=== PATIENT | male | born 1970 | race African-American/Black ===

== ENCOUNTER 2021-01-20 13:53 | Inpatient (IN) | payer OTHER ==
[2021-01-20 15:45] LABS: #Eosinphils 0.4 10x3/uL (0.0-0.5); #Monocytes 0.9 10x3/uL (0.0-1.1); #Neutrophils 6.9 10x3/uL (1.5-8.4); %Basophils 0.3 % (0.0-2.0); %Eosinophils 3.5 % (0.0-6.0); %Lymphocytes 18.7 % (18.0-47.0); %Neutrophils 67.8 % (40.0-75.0); Hemoglobin 6.4 g/dL (13.5-17.5); Mean Corpuscular HGB CONC 30.6 g/dL (32.0-36.0); Mean Corpuscular Hemoglobin 22.7 pg (27.0-33.0); Mean Corpuscular Volume 74.1 fl (81.2-95.1); Mean Platelet Volume 9.2 fl (7.4-10.4); PTT 27.7 sec (22.0-33.0); Platelet Count 464 10x3/uL (150-450); Prothrombin Time 11.4 sec (9.5-12.1); RBC Distribution Width 16.4 % (11.5-14.5); Red Blood Cell (RBC) Count 2.82 10x6/uL (4.32-5.72); White Blood Cell (WBC) Count 10.2 10x3/uL (3.5-10.5)
[2021-01-20 15:56] LABS: ALT (SGPT) 33 U/L (8-55); AST (SGOT) 24 U/L (5-34); Albumin 3.5 g/dL (3.5-5.0); Alkaline Phosphatase 65 U/L (40-110); Anion Gap 15 mmol/L (10-20); BUN (Urea Nitrogen) 27 mg/dL (8.4-25.7); Bilirubin, Total 0.3 mg/dL (0.2-1.2); Calc. Creatinine Clearance 0 mL/min (70-130); Calcium 8.4 mg/dL (7.8-10.44); Carbon Dioxide 25 mmol/L (22-29); Chloride 98 mmol/L (98-107); Globulin 3.2 g/dL (2.4-3.5); Glucose 113 mg/dL (70-105); Potassium 4.8 mmol/L (3.5-5.1); Protein, Total 6.7 g/dL (6.0-8.3); Sodium 133 mmol/L (136-145)
[2021-01-20] MEDS ORDERED: Guaifenesin DM 100-10/5 ML UDCUP PO PRN (17:25)
[2021-01-20] MEDS ORDERED: Ondansetron ODT 4 MG TAB PO PRN (17:25)
[2021-01-20] MEDS ORDERED: HumaLOG 300 UNITS/3 ML VIAL SC PRN ×2 (17:28)
[2021-01-20] MEDS ORDERED: Dextrose 50% Abboject 50 ML SYRINGE SLOW IVP PRN (17:28)
[2021-01-20] MEDS ORDERED: Dextrose 5% in Water 1,000 ML IV PRN (17:28)
[2021-01-20 18:00] LABS: CK (CPK) 127 U/L (30-200); Iron 20 ug/dL (65-175)
[2021-01-20 18:08] LABS: Iron 19 ug/dL (65-175); Iron Binding Capacity, Total 183 mcg/dL (261-462)
[2021-01-20 18:44] VITALS: BMI 31.7
[2021-01-20 19:03] LABS: Ferritin 2635.98 ng/mL (22-322)
[2021-01-20] MEDS: Acetaminophen 325 MG TAB PO PRN (19:37)
[2021-01-20] MEDS: Sodium Chloride 0.9% 1,000 ML IV SCH (19:38)
[2021-01-20] MEDS: Famotidine 20 MG TAB PO SCH (20:44)
[2021-01-20 22:09] LABS: Vitamin B12 Greater than 2000 pg/mL (211-911)
[2021-01-20 23:26] LABS: Bilirubin Neg (Negative); Blood, Urine Negative (Negative); Clarity Clear (Clear); Glucose, Urine (Dipstick) Normal (Negative); Ketone, Urine Negative (Negative); Leukocyte Negative (Negative); Nitrite Negative (Negative); Protein, Urine (Dipstick) 15 mg/dl (Neg-Trace); Urobilinogen Normal mg/dL (Less than 2)
[2021-01-21 00:02] LABS: Bacteria/HPF Rare-Few HPF (None Seen); RBC/HPF 0-3 HPF (0-3); Squamous Epithelial 0-3 HPF (0-3); WBC/HPF 0-3 HPF (0-3)
[2021-01-21 01:00] LABS: Hemoglobin 7.4 g/dL (13.5-17.5)
[2021-01-21 06:01] LABS: Anion Gap 14 mmol/L (10-20); BUN (Urea Nitrogen) 21 mg/dL (8.4-25.7); Calc. Creatinine Clearance 97 mL/min (70-130); Calcium 9.2 mg/dL (7.8-10.44); Carbon Dioxide 24 mmol/L (22-29); Chloride 105 mmol/L (98-107); Glucose 99 mg/dL (70-105); Potassium 5.2 mmol/L (3.5-5.1); Sodium 138 mmol/L (136-145)
[2021-01-21 07:11] LABS: #Eosinphils 0.4 10x3/uL (0.0-0.5); #Monocytes 1.1 10x3/uL (0.0-1.1); #Neutrophils 8.6 10x3/uL (1.5-8.4); %Basophils 0.3 % (0.0-2.0); %Eosinophils 3.3 % (0.0-6.0); %Lymphocytes 12.5 % (18.0-47.0); %Monocytes 9.3 % (0.0-10.0); %Neutrophils 74.3 % (40.0-75.0); Hemoglobin 7.5 g/dL (13.5-17.5); Mean Corpuscular HGB CONC 30.7 g/dL (32.0-36.0); Mean Corpuscular Hemoglobin 23.3 pg (27.0-33.0); Mean Corpuscular Volume 75.8 fl (81.2-95.1); Mean Platelet Volume 9.3 fl (7.4-10.4); Platelet Count 515 10x3/uL (150-450); Red Blood Cell (RBC) Count 3.22 10x6/uL (4.32-5.72); White Blood Cell (WBC) Count 11.5 10x3/uL (3.5-10.5)
[2021-01-21] MEDS: Acetaminophen 325 MG TAB PO PRN (07:11)
[2021-01-21] MEDS: Sodium Chloride 0.9% 1,000 ML IV SCH (07:11)
[2021-01-21] MEDS: Famotidine 20 MG TAB PO SCH (07:12)
[2021-01-21 16:31] VITALS: BP 115/61; TEMP 98.6
[2021-01-21 16:40] LABS: SARS-CoV-2 PCR by NAA Not Detected (NotDetected)
== END 2021-01-21 18:32 | disposition home or self-care (01) | DRG 812 ==
LOC: CSHERS 13:53 → CSHTELE 18:23 → UNDOADMIN 18:23 → CSHTELE 01-21 07:40 → UNDODISIN 01-21 18:32
PROVIDERS: ADMIT Family Medicine; ATTEND Nurse Practitioner Family
PROC: 30233N1 Transfusion of Nonautologous Red Blood Cells into Peripheral Vein, Percutaneous Approach (ICD-10-PCS; principal; 2021-01-21)
DX: D64.9 Anemia, unspecified (principal); R04.2 Hemoptysis; N17.9 Acute kidney failure, unspecified; Z20.822 Contact with and (suspected) exposure to COVID-19; E11.9 Type 2 diabetes mellitus without complications; I10 Essential (primary) hypertension; F31.9 Bipolar disorder, unspecified; F41.9 Anxiety disorder, unspecified; R51.9 Headache, unspecified; F20.9 Schizophrenia, unspecified; F17.210 Nicotine dependence, cigarettes, uncomplicated; E87.5 Hyperkalemia; Z88.8 Allergy status to other drugs, medicaments and biological substances; Z79.84 Long term (current) use of oral hypoglycemic drugs; Z79.899 Other long term (current) drug therapy; Z85.118 Personal history of other malignant neoplasm of bronchus and lung; Z89.612 Acquired absence of left leg above knee; Z79.01 Long term (current) use of anticoagulants
CPT/HCPCS: 36416; 36430; 71275; 76770; 80048; 80053; 81001; 82436; 82550; 82607; 82728; 82746; 83540; 83550; 84133; 84300; 84484; 85025; 85046; 85610; 85730; 86850; 86900; 86901; 93005; J7050; P9016; U0003; U0005